=== PATIENT | female | born 1980 | race American Indian/Alaskan Native ===

== ENCOUNTER 2019-07-09 09:10 | Day surgery (SDC) | payer OTHER ==
--- NOTE | 2019-07-09 09:40 | Short Stay Summary ---
Short Stay Documentation Date of service: 07/09/19 Narrative H&P: Pt is a 38 yo BF LMP 06/21/19 presents for surgical evaluation and treatment of endometrial polyp. She complained of prolonged heavy vaginal bleeding, and pelvic u/s showed and endometrial polyp. She is now scheduled for a Hysteroscopy with polypectomy. - History Principal diagnosis: Menorrhagia Past Medical History: No medical history Past Surgical History: Other (BTL) Social history: no significant social history, single - Allergies and Medications Current Medications: Allergies No Known Allergies Allergy (Verified 07/04/19 14:14) Home Medications Medication Instructions Recorded Confirmed Last Taken Type amLODIPine [Norvasc] 5 mg PO DAILY 07/04/19 07/04/19 Unknown History Active Medications Cefazolin Sodium (Ancef/Sterile Water 2 Gm/20 Ml) 2 gm in 20 mls @ 80 mls/hr IV PREOP NR; Protocol - Physical exam General appearance: no acute distress Integumentary: no rash HEENT: Atraumatic Lungs: Clear to auscultation Breasts: deferred Heart: Regular rate Gastrointestinal: normal Female Genitourinary: deferred Rectal Exam: deferred Extremities: no ischemia, No edema Neurological: Normal gait, Normal speech - Brief post op/procedure progress note Date of procedure: 07/09/19 Pre-op diagnosis: 1. Menorrhagia @. Endometrial polyp Post-op diagnosis: same Procedure: 1. Hysteroscopy 2. Polypectomy using Myosure Anesthesia: GETA Findings: An enlarged uterus with endometrial polyps Surgeon: LETI CORBETT Estimated blood loss: minimal Pathology: list (endometrial polyps) Specimen disposition: to lab Condition: stable - Hospital course Hospital course: Unremarkable. - Disposition Condition at discharge: Good Disposition: DC-01 TO HOME OR SELFCARE - Discharge Diagnoses (1) Menorrhagia with regular cycle Status: Resolved (2) Endometrial polyp Status: Resolved Short Stay Discharge Plan Activity: no restrictions Diet: regular Follow up with: PRIMARY MD ALEXIA [Primary Care Provider] - 7 Days LETI CORBETT MD [Staff Physician] - 14 Days Prescriptions: Ibuprofen [Motrin] 800 mg PO Q8HR PRN #30 tablet PRN Reason: Pain, Mild (1-3) HYDROcodone/APAP 5-325 [[place] 5/325] 1 each PO Q6HR PRN #14 tablet PRN Reason: Pain
[2019-07-09] MEDS ORDERED: LACTATED RINGERS 1,000 ML ONE (09:47)
[2019-07-09] MEDS ORDERED: ceFAZolin/Water 2 GM/20 ML 2 GM/20 ML SYRINGE IV NR (10:00)
[2019-07-09 10:18] LABS: Hematocrit 38.6 % (30.3-42.9); Hemoglobin 12.7 gm/dl (10.1-14.3)
[2019-07-09] MEDS ORDERED: ONDANSETRON 4 MG/2 ML INJ IV PRN (10:23)
[2019-07-09] MEDS ORDERED: fentaNYL 100 MCG/2 ML INJ IV PRN (10:23)
--- NOTE | 2019-07-09 10:24 | Anesthesia Day of Surgery ---
Anesthesia Day of Surgery - Day of Surgery Patient Examined: Yes Patient H&P Reviewed: Yes Patient is NPO: Yes
--- NOTE | 2019-07-09 10:26 | Anesthesia Consultation ---
Anesthesia Consult and Med Hx Date of service: 07/09/19 - Airway Anesthetic Teeth Evaluation: Good, Bridges ROM Head & Neck: Adequate Mental/Hyoid Distance: Adequate Mallampati Class: Class III Intubation Access Assessment: Probably Good - Pre-Operative Health Status ASA Pre-Surgery Classification: ASA2 Proposed Anesthetic Plan: General - Cardiovascular System Hx Hypertension: Yes (x 1 mo) - Central Nervous System Hx Psychiatric Problems: No - Other Systems Hx Cancer: No
[2019-07-09] MEDS ORDERED: LACTATED RINGERS 1,000 ML IV SCH (11:00)
[2019-07-09] MEDS ORDERED: LIDOCAINE MPF (2%) 20 MG/1 ML VIAL 5 ML ONE (11:24)
[2019-07-09] MEDS ORDERED: PROPOFOL 200 MG/20 ML VIAL IV ONE (11:25)
[2019-07-09] MEDS ORDERED: fentaNYL 100 MCG/2 ML INJ ONE (11:25)
[2019-07-09] MEDS ORDERED: SODIUM CHLORIDE 0.9% IRRIG SOLN 3000 ML IR ONE (12:00)
--- NOTE | 2019-07-09 12:13 | Operative Report ---
Operative Report Operative Report: Date of procedure: 07/09/2019 Pre-operative diagnosis: 1. Menorrhagia 2. Endometrial polyps Post-operative diagnosis: Same Procedure name(s): 1. Hysteroscopy 2. Polypectomy using Myosure device Surgeon: Julio Cesar Murphy MD Supervisor Fireworks Assembly: None Anesthesia: GET EBL: Minimal Findings: An enlarged uterus with multiple endometrial polyps. Procedure: After the patient was correctly identified, she was prepped and draped in the usual sterile fashion and placed in the dorsolithotomy position. First the bladder was emptied using a straight catheter, and the speculum was placed in the vaginal vault and the anterior lip of the cervix was grasped using ring forceps. The cervical os was sequentially dilated, and the hysteroscope was introduced into the cervical canal. Visualization of endometrial cavity found multiple endometrial polyps. The Myosure device was introduced into the endometrial cavity and all the endometrial polyps were removed and sent to pathology. At this time the procedure was considered complete. All instruments removed from the uterine cavity. The patient tolerated the procedure well and was transported to recovery in stable condition.
[2019-07-09] MEDS ORDERED: SUCCINYLCHOLINE CHLORIDE 200 MG/10 ML INJ MDV ONE (12:19)
[2019-07-09] MEDS ORDERED: dexAMETHasone 20 MG/5 ML VIAL ONE (12:19)
[2019-07-09] MEDS ORDERED: ONDANSETRON 4 MG/2 ML INJ ONE (12:19)
[2019-07-09] MEDS ORDERED: HYDROcodone/ACETAMINOPHEN 5-325 MG TAB PO PRN (12:48)
[2019-07-09 15:16] VITALS: BP 138/71
--- NOTE | 2019-07-09 18:56 | Post Anesthesia Evaluation ---
- Post Anesthesia Evaluation Patient Participated: Yes Airway Patent: Yes Stable Respiratory Function: Yes Nausea/Vomiting: No Temp > 96.8F: Yes Pain Manageable: Yes Adequeate Hydration: Yes Anesthesia Complications: No Block Receding Appropriately: Not Applicable Patient on Ventilator: No
== END 2019-07-09 14:00 | disposition home or self-care (01) ==
LOC: OR 09:10
PROVIDERS: ATTEND Obstetrics & Gynecology
DX: N92.0 Excessive and frequent menstruation with regular cycle (principal); N85.8 Other specified noninflammatory disorders of uterus; I10 Essential (primary) hypertension; Z98.51 Tubal ligation status; Z79.899 Other long term (current) drug therapy; Z98.890 Other specified postprocedural states
CPT/HCPCS: 36415; 58558; 81025; 85014; 85018; 88305; A4217; C1782; J0330; J0690; J1100; J2405; J2704; J3010; J7120